=== PATIENT | female | born 1960 | race Caucasian/White ===

== ENCOUNTER 2020-09-06 11:22 | Observation (INO) | payer OTHER ==
[~2020-09-06] VITALS: Ht 152.4 cm; Wt 49.9 kg
[~2020-09-06 11:22] MED LIST: AEROCHAMBER1 EA XX; PREDNISONE20 MG PO; VENTOLIN HFA 66.7 GM INH
[2020-09-06 12:22] LABS: HEMOGLOBIN 17.1 gm/dl (12.3-15.3); RED BLOOD COUNT 5.1 M/UL (4.00-5.10); WHITE BLOOD COUNT 5.4 K/UL (4.5-11.0)
[2020-09-06 12:50] LABS: BUN/CREATININE RATIO 12 (0-10)
[2020-09-07 02:44] LABS: HEMOGLOBIN 16.5 gm/dl (12.3-15.3); RED BLOOD COUNT 4.97 M/UL (4.00-5.10); WHITE BLOOD COUNT 5.3 K/UL (4.5-11.0)
[2020-09-07 03:18] LABS: BUN/CREATININE RATIO 27 (0-10)
[2020-09-07] MEDS ORDERED: AZITHROMYCIN500 MG PO (10:24)
[2020-09-07] MEDS ORDERED: AMLODIPINE BESYL5 MG PO (10:24)
[2020-09-07] MEDS ORDERED: PROVENTIL HFA6.7 GM INH (10:24)
[2020-09-07] MEDS ORDERED: PROTONIX 40 MG40 M1 PO (10:24)
[2020-09-07] MEDS ORDERED: IPRAT-ALBUT 0.5-3 ML NEB (10:24)
[2020-09-07] MEDS ORDERED: MEDROL DOSEPAK 24 MG PO (10:24)
[2020-09-07] MEDS ORDERED: SPIRIVA18 MCG INH (11:31)
[2020-09-07] MEDS ORDERED: ADVAIR 250-501 EACH INH (11:31)
--- NOTE | 2020-09-07 11:35 | NUR ---
PATIENT'S OXYGEN SATURATION 88% ON RA.
--- NOTE | 2020-09-07 13:46 | NUR ---
PATIENT'S OXYGEN WAS 88% WHILE AMBULATING ON RA, OXYGEN IS 94% AT REST ON RA. PER DERIAN HERNANDEZ RN CASE MANAGEMENT, PATIENT DOES NOT QUALIFY FOR HOME O2 USE.
== END 2020-09-07 14:50 | disposition home or self-care (01) ==
LOC: ER1 11:22 → M/S 14:13 → CDU 14:13 → M/S 19:38
PROVIDERS: Physician Assistant; ADMIT Internal Medicine
DX: J96.22 Acute and chronic respiratory failure with hypercapnia (principal); J44.1 Chronic obstructive pulmonary disease with (acute) exacerbation; J96.21 Acute and chronic respiratory failure with hypoxia; I10 Essential (primary) hypertension; F17.210 Nicotine dependence, cigarettes, uncomplicated; Z20.822 Contact with and (suspected) exposure to COVID-19; E03.9 Hypothyroidism, unspecified
CPT/HCPCS: 0240U; 36415; 36600; 71045; 80053; 82550; 82553; 82803; 83874; 84443; 84484; 85025; 93005; 94640; 94664; 94760; 96365; 96366; 96375; 99285; G0378; J0456; J1650; J2930; J7030

== ENCOUNTER → 2020-10-10 | Outpatient (CLI) | payer OTHER ==
[~2020-10-10] MED LIST changes: +ADVAIR 250-501 EACH INH; +AMLODIPINE BESYL5 MG PO; +AZITHROMYCIN500 MG PO; +IPRAT-ALBUT 0.5-3 ML NEB; +MEDROL DOSEPAK 24 MG PO; +PROTONIX 40 MG40 M1 PO; +PROVENTIL HFA6.7 GM INH; +SPIRIVA18 MCG INH
== END ==
LOC: HEART 5 12:38
DX: J44.9 Chronic obstructive pulmonary disease, unspecified (principal); R94.2 Abnormal results of pulmonary function studies
CPT/HCPCS: 36600; 82803; 94060; 94729

== ENCOUNTER → 2020-10-10 | Outpatient (CLI) | payer OTHER | LOC: RT 13:01 | DX: R09.02 Hypoxemia (principal) | CPT/HCPCS: 36600; 82803 ==